=== PATIENT | male | born 1955 | race Caucasian/White ===

== ENCOUNTER 2017-09-09 08:50 | Emergency (ER) | payer BC ==
[2017-09-09 09:01] VITALS: BP 153/97
[2017-09-09] MEDS: Sodium Chloride 0.9% 1,000 ML IV SCH (10:01)
[2017-09-09] MEDS: Ondansetron 4 MG/2 ML SDV IVPUSH ONE (10:02)
[2017-09-09] MEDS: Morphine 2 MG/ML Syringe IVPUSH ONE (10:03)
[2017-09-09] MEDS: Sodium Chloride 0.9% 10 ML Syringe FLUSH PRN (10:04)
--- NOTE | 2017-09-09 10:58 | EDM.PDOC ---
ED HPI GENERAL MEDICAL PROBLEM - General Chief Complaint: Abdominal Pain Stated Complaint: VOMITING/ABDOMINAL PAIN Time Seen by Provider: 09/09/17 09:17 Source of Information: Reports: Patient History Limitations: Reports: No Limitations - History of Present Illness INITIAL COMMENTS - FREE TEXT/NARRATIVE: 62-year-old male comes into the ER today with complaint of 8/10 abdominal pain in the RLQ that started at 2:30 AM this morning. He states the pain is sharp, stabbing, constant and gradually worsening. He has not had this pain before. He vomited one time this morning. The last time he was able to eat was 6 PM last night and his last bowel movement was 8am this morning. He complains of fever, chills, nausea, and vomiting. He denies any diarrhea, constipation, bloody emesis, bloody stool, chest pain, pain with urination, cough, or sick contacts. He denies any history of abdominal surgery. Has a history of both GERD and hypertension. He did not take his medication this morning. Currently he is not hungry. He tried Hydrocodone 2 hours ago which did not alleviate the pain. Denies any sick contacts. Treatments LAND SURVEY TECHNICIAN: Reports: Other (see below) Other Treatments LAND SURVEY TECHNICIAN: oxycodone Right Lower Abdomen Pain Score (Numeric/FACES): 8 - Related Data Allergies Allergy/AdvReac Type Severity Reaction Status Date / Time No Known Allergies Allergy Verified 12/28/14 19:02 Home Meds: Home Meds Aspirin [Abdon Chewable Aspirin] 81 mg PO DAILY 12/28/14 [History] FLUoxetine [PROzac] 60 mg PO DAILY 12/28/14 [History] Mirtazapine [Remeron] 45 mg PO BEDTIME 12/28/14 [History] Multivit-Min/FA/Lycopene/Lut [Centrum Silver Tablet] 1 tab PO DAILY 12/28/14 [ History] Omeprazole 20 mg PO DAILY 12/28/14 [History] Valsartan/Hydrochlorothiazide [Valsartan-Hctz 320-25 mg Tab] 1 tab PO DAILY 06/03 [History] amLODIPine [Norvasc] 10 mg PO BEDTIME #30 tablet 12/29/14 [Rx] Ondansetron [Zofran ODT] 4 mg PO Q6H PRN #7 tab.dis 09/09/17 [Rx] oxyCODONE HCl/Acetaminophen [oxyCODONE-Acetaminophen 5-325] 1 tab PO Q8H PRN [History] Past Medical History Gastrointestinal History: Reports: GERD Genitourinary History: Reports: UTI, Recurrent Other Genitourinary History: prostate cancer with prostectomy Musculoskeletal History: Reports: Fracture Other Neuro History: rt sided facial numbness & tingling & rt eye visual darkening Oncologic (Cancer) History: Reports: Prostate - Past Surgical History Other Musculoskeletal Surgeries/Procedures:: right shoulder decompression Social & Family History - Family History Family Medical History: Noncontributory - Tobacco Use Smoking Status *Q: Never Smoker Years of Tobacco use: 20 Used Tobacco, but Quit: Yes Month Tobacco Last Used: 07/2004 Second Hand Smoke Exposure: No - Caffeine Use Caffeine Use: Reports: None - Alcohol Use Days Per Week of Alcohol Use: 7 Number of Drinks Per Day: 1 Total Drinks Per Week: 7 - Recreational Drug Use Recreational Drug Use: No ED ROS GENERAL - Review of Systems Review Of Systems: See Below Constitutional: Reports: Fever, Chills, Decreased Appetite HEENT: Reports: No Symptoms. Denies: Rhinitis, Sinus Problem, Throat Pain Respiratory: Reports: No Symptoms. Denies: Shortness of Breath, Wheezing, Cough Cardiovascular: Reports: No Symptoms. Denies: Chest Pain, Palpitations Endocrine: Reports: No Symptoms GI/Abdominal: Reports: Abdominal Pain (Right lower quadrant), Anorexia, Decreased Appetite, Nausea, Vomiting (5 AM). Denies: Bloody Stool, Constipation , Diarrhea, Difficulty Swallowing, Hematemesis, Hematochezia, Melena : Reports: No Symptoms. Denies: Dysuria Musculoskeletal: Reports: No Symptoms Skin: Reports: No Symptoms Neurological: Reports: No Symptoms Psychiatric: Reports: No Symptoms Hematologic/Lymphatic: Reports: No Symptoms Immunologic: Reports: No Symptoms ED EXAM, GI/ABD - Physical Exam Exam: See Below Exam Limited By: No Limitations General Appearance: Alert, WD/WN, Mild Distress Eyes: Bilateral: Normal Appearance Ears: Normal External Exam Throat/Mouth: Normal Inspection Head: Atraumatic, Normocephalic Neck: Normal Inspection Respiratory/Chest: No Respiratory Distress, Lungs Clear, Normal Breath Sounds, Chest Non-Tender. No: Crackles, Rales, Rhonchi, Wheezing Cardiovascular: Normal Peripheral Pulses, Regular Rate, Rhythm, No Edema, No Murmur, No Rub GI/Abdominal Exam: Soft, Rebound, Tender (Right lower quadrant), Abnormal Bowel Sounds (Hypoactive). No: No Distention, No Mass, Hepatomegaly, Splenomegaly (Male) Exam: No Hernia Back Exam: Normal Inspection. No: CVA Tenderness (L), CVA Tenderness (R) Extremities: Normal Inspection Neurological: Alert, Oriented Psychiatric: Normal Affect, Normal Mood Skin Exam: Warm, Dry, Intact Course - Vital Signs Last Recorded V/S: Last Vital Signs Temp 97.3 F 09/09/17 08:58 Pulse 58 L 09/09/17 08:58 Resp 18 09/09/17 08:58 BP 153/97 H 09/09/17 08:58 Pulse Ox 98 09/09/17 08:58 - Orders/Labs/Meds Orders: Active Orders 24 hr Category Date Time Status Peripheral IV Care [RC] . DIRECTED Care 09/09/17 09:53 Active Abdomen 2V AP Flat Upright [CR] Stat Exams 09/09/17 11:11 Taken Sodium Chloride 0.9% [Normal Saline] 1,000 ml Med 09/09/17 10:00 Active IV ONETIME Sodium Chloride 0.9% [Saline Flush] Med 09/09/17 09:52 Active 10 ml FLUSH ASDIRECTED PRN Peripheral IV Insertion Adult [OM.PC] Stat Oth 09/09/17 09:52 Ordered Medication Orders Sodium Chloride (Normal Saline) 1,000 mls @ 999 mls/hr IV ONETIME [facility] Last Admin: 09/09/17 10:01 Dose: 999 mls/hr Sodium Chloride (Saline Flush) 10 ml FLUSH ASDIRECTED PRN PRN Reason: Keep Vein Open Last Admin: 09/09/17 10:04 Dose: 10 ml Labs: Laboratory Tests 09/09/17 09/09/17 09/09/17 Range/Units 09:14 09:14 09:14 WBC 6.45 (4.23-9.07) K/mm3 RBC 5.14 (4.63-6.08) M/mm3 Hgb 15.7 (13.7-17.5) gm/L Hct 45.0 (40.1-51.0) % MCV 87.5 (79.0-92.2) fl MCH 30.5 (25.7-32.2) pg MCHC 34.9 (32.2-35.5) g/dl RDW Std Deviation 43.0 (35.1-43.9) fL Plt Count 215 (163-337) K/mm3 MPV 10.0 (9.4-12.3) fl Neut % (Auto) 78.1 H (34.0-67.9) % Lymph % (Auto) 16.1 L (21.8-53.1) % Tama % (Auto) 5.4 (5.3-12.2) % Eos % (Auto) 0.2 L (0.8-7.0) Baso % (Auto) 0.2 (0.1-1.2) % Neut # (Auto) 5.04 (1.78-5.38) K/mm3 Lymph # (Auto) 1.04 L (1.32-3.57) K/mm3 Tama # (Auto) 0.35 (0.30-0.82) K/mm3 Eos # (Auto) 0.01 L (0.04-0.54) K/mm3 Baso # (Auto) 0.01 (0.01-0.08) K/mm3 Sodium 138 (136-145) mEq/L Potassium 3.9 (3.5-5.1) mEq/L Chloride 101 (98-107) mEq/L Carbon Dioxide 23 (21-32) mEq/L Anion Gap 17.9 H (5-15) BUN 23 H (7-18) mg/dL Creatinine 1.2 (0.7-1.3) mg/dL Est Cr Clr Drug Dosing 64.64 mL/min Estimated GFR (MDRD) > 60 (>60) mL/min BUN/Creatinine Ratio 19.2 H (14-18) Glucose 136 H (80-115) mg/dL Calcium 9.0 (8.5-10.1) mg/dL Total Bilirubin 0.4 (0.2-1.0) mg/dL AST 39 H (15-37) U/L ALT 48 (16-63) U/L Alkaline Phosphatase 92 (46-116) U/L C-Reactive Protein < 0.2 (<1.0) mg/dL Total Protein 7.8 (6.4-8.2) g/dl Albumin 4.1 (3.4-5.0) g/dl Globulin 3.7 gm/dL Albumin/Globulin Ratio 1.1 (1-2) Lipase 121 (73-393) U/L Meds: Medications Generic Name Dose Route Start Last Admin Trade Name Freq PRN Reason Stop Dose Admin Sodium Chloride 1,000 mls @ 999 mls/hr 09/09/17 10:00 09/09/17 10:01 Normal Saline IV 999 mls/hr ONETIME NADYA Administration Sodium Chloride 10 ml 09/09/17 09:52 09/09/17 10:04 Saline Flush FLUSH 10 ml ASDIRECTED PRN Administration Keep Vein Open Discontinued Medications Generic Name Dose Route Start Last Admin Trade Name Freq PRN Reason Stop Dose Admin Dicyclomine HCl 10 mg 09/09/17 12:47 09/09/17 12:58 Bentyl PO 09/09/17 12:48 10 mg ONETIME ONE Administration Morphine Sulfate 4 mg 09/09/17 09:52 09/09/17 10:03 Morphine IVPUSH 09/09/17 09:53 4 mg ONETIME ONE Administration Ondansetron HCl 4 mg 09/09/17 09:52 09/09/17 10:02 Zofran IVPUSH 09/09/17 09:53 4 mg ONETIME ONE Administration - Re-Assessments/Exams Free Text/Narrative Re-Assessment/Exam: 09/09/17 13:05. White blood count, C-reactive protein both came back very normal. Falt and Upright of the abdomen show increased gas in the colon, no apparent acute abnormality. He does feel better after IV fluid, Zofran and morphine. Does feel up to going home at this time. discharge instructions as documented. Departure - Departure Time of Disposition: 12:47 Disposition: Home, Self-Care 01 Condition: Fair Clinical Impression: Abdominal pain Qualifiers: Abdominal location: right lower quadrant Qualified Code(s): R10.31 - Right lower quadrant pain - Discharge Information Prescriptions: Ondansetron [Zofran ODT] 4 mg PO Q6H PRN #7 tab.dis PRN Reason: Nausea/Vomiting Instructions: Abdominal Pain, Adult, [id number] Referrals: Shahid Quesada Jr, MD [Primary Care Provider] - Forms: ED Department Discharge Additional Instructions: Clear liquids until this evening, then very careful bland diet as tolerated, Zofran if needed for any further nausea or vomiting, also I do recommend taking probiotic twice daily for the next 5 days or so, follow-up clinic if not better by tomorrow, return to ED if symptoms worsening in any way. - My Orders Last 24 Hours: My Active Orders 09/09/17 09:52 Sodium Chloride 0.9% [Saline Flush] 10 ml FLUSH ASDIRECTED PRN Peripheral IV Insertion Adult [OM.PC] Stat 09/09/17 09:53 Peripheral IV Care [RC] . DIRECTED 09/09/17 10:00 Sodium Chloride 0.9% [Normal Saline] 1,000 ml IV ONETIME 09/09/17 11:11 Abdomen 2V AP Flat Upright [CR] Stat - Assessment/Plan Last 24 Hours: My Active Orders 09/09/17 09:52 Sodium Chloride 0.9% [Saline Flush] 10 ml FLUSH ASDIRECTED PRN Peripheral IV Insertion Adult [OM.PC] Stat 09/09/17 09:53 Peripheral IV Care [RC] . DIRECTED 09/09/17 10:00 Sodium Chloride 0.9% [Normal Saline] 1,000 ml IV ONETIME 09/09/17 11:11 Abdomen 2V AP Flat Upright [CR] Stat
[2017-09-09] MEDS: Dicyclomine 10 MG Cap PO ONE (12:58)
--- NOTE | 2017-09-09 15:46 | CR ---
Abdomen: Supine and upright views of the abdomen were obtained. Scattered gas within nondilated colon is seen which is felt to be incidental. Calcifications are seen within the pelvis compatible with phleboliths. Bony structures are unremarkable. No soft tissue abnormality is seen. Impression: 1. Incidental findings. Diagnostic code #2
== END 2017-09-09 12:55 | disposition home or self-care (01) ==
LOC: JD.ED 08:50
DX: R10.31 Right lower quadrant pain (principal); Z79.82 Long term (current) use of aspirin; Z79.899 Other long term (current) drug therapy; Z87.891 Personal history of nicotine dependence
CPT/HCPCS: 36415; 74019; 80053; 83690; 85025; 86140; 96361; 96374; 96375; 99284; A9270; J2270; J2405; J7040; J7050